=== PATIENT | female | born 1975 ===

== ENCOUNTER 2020-01-02 15:10 | Outpatient (REF) | payer BC, SELFPAY ==
[2020-01-02 21:39] LABS: COMMENT (LAB VIEW ONLY) 41.68 mg/dL; Microalb ug/mg Crea 10.8 ug/mg Cr
[2020-01-02 21:40] LABS: Anion Gap 6.9 mmol/L (3-11); BUN 9 mg/dL (7-18); CO2 30.1 mmol/L (21.0-32.0); CREATININE 0.88 mg/dL (0.55-1.02); Calcium 9.3 mg/dL (8.5-10.1); Chloride 100 mmol/L (98-107); Glucose 291 mg/dL (74-106); Sodium 137 mmol/L (136-145); TSH 5.35 uIU/mL (0.36-3.74)
== END 2020-01-02 15:30 ==
LOC: NCHCN 15:10
PROVIDERS: PCP Registered Nurse; Visit Provider Registered Nurse
DX: E10.9 Type 1 diabetes mellitus without complications (principal); E03.9 Hypothyroidism, unspecified
CPT/HCPCS: 80048; 82043; 82570; 84443